=== PATIENT | female | born 1995 | race Caucasian/White ===

== ENCOUNTER 2017-06-01 23:26 | Emergency (ER) | payer BC, MEDICAID ==
[2017-06-02] MEDS ORDERED: Ziprasidone Mesylate 20 MG Vial IM ONE (00:03)
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
[2017-06-02] MEDS ORDERED: Water For Injection, Sterile 20 ML ONE (00:12)
[2017-06-02 01:03] LABS: CHLORIDE,CL 106 mmol/L (98-107); SODIUM,NA 140 mmol/L (136-145)
== END 2017-06-02 01:28 ==
LOC: MW.ED 23:26
DX: F32.9 Major depressive disorder, single episode, unspecified (principal); F17.210 Nicotine dependence, cigarettes, uncomplicated; Z88.0 Allergy status to penicillin
CPT/HCPCS: 36415; 80053; 83735; 84443; 85025; 93005; 96372; 99285; G0480; J3486